=== PATIENT | male | born 1965 | race Caucasian/White ===

== ENCOUNTER 2018-02-11 09:45 | Day surgery (SDC) | payer OTHER ==
[2018-02-11] MEDS ORDERED: MIDAZOLAM 1 MG/ML 2 ML INJ ×2 (12:48)
[2018-02-11] MEDS ORDERED: FENTAnyl 50 MCG/ML VIAL (12:48)
== END 2018-02-11 14:16 | disposition home or self-care (01) ==
LOC: GIL 09:45
DX: Z12.11 Encounter for screening for malignant neoplasm of colon (principal); D12.8 Benign neoplasm of rectum; E11.9 Type 2 diabetes mellitus without complications; E78.5 Hyperlipidemia, unspecified; I10 Essential (primary) hypertension; E66.3 Overweight; Z68.36 Body mass index [BMI] 36.0-36.9, adult
CPT/HCPCS: 45380; 82962; 88305